=== PATIENT | male | born 1975 | race Caucasian/White ===

== ENCOUNTER 2017-07-02 08:17 | Outpatient (CLI) | payer BC ==
--- NOTE | 2017-07-02 09:19 | RAD ---
BIPHASIC BARIUM SWALLOW: HISTORY: A 41-year-old male with gastroesophageal reflux disease. The patient has a history of laparoscopic gastric banding. FINDINGS: The display coordinator film demonstrates a gastric band in place. Swallowing was grossly normal. There is unobstructed flow of contrast through the esophagus into th e stomach banding site. No obstructing mass, stricture, ulcer, or diverticulum is seen. A 12 mm ta blet passes promptly from the esophagus into the stomach via banding site. No GE reflux was demonst rated during the Valsalva maneuver. IMPRESSION: Unremarkable exam. POS: [facility]
== END 2017-07-02 08:18 | disposition home or self-care (01) ==
LOC: RAD 08:17
PROVIDERS: ATTEND Surgery
DX: K21.9 Gastro-esophageal reflux disease without esophagitis (principal)
CPT/HCPCS: 74220

== ENCOUNTER 2019-02-25 20:22 | Emergency (ER) | payer BC ==
[2019-02-25 22:44] LABS: #Basophils 0.1 thou/uL (0.0-0.2); #Eosinphils 0.3 thou/uL (0.0-0.7); #Lymphocytes 1.7 thou/uL (1.20-3.40); #Monocytes 0.7 thou/uL (0.11-0.59); #Neutrophils 5.7 thou/uL (1.40-6.50); %Basophils 0.6 % (0.0-1.0); %Eosinophils 3.2 % (0.0-10.0); %Lymphocytes 20.1 % (21.0-51.0); %Monocytes 8.8 % (0.0-10.0); %Neutrophils 67.3 % (42.0-75.0); Hemoglobin 15.2 g/dL (14.0-18.0); Mean Corpuscular HGB CONC 34.7 g/dL (32.0-36.0); Mean Corpuscular Hemoglobin 30.7 pg (27.0-31.0); Mean Corpuscular Volume 88.6 fL (78.0-98.0); Mean Platelet Volume 7.7 fL (7.4-10.4); Platelet Count 207 thou/uL (130-400); RBC Distribution Width 13.1 % (11.5-14.5); Red Blood Cell (RBC) Count 4.94 mill/uL (4.70-6.10); White Blood Cell (WBC) Count 8.4 thou/uL (4.8-10.8)
--- NOTE | 2019-02-25 22:53 | RAD ---
AP view chest. HISTORY: Dizziness AP view chest obtained. The lungs are well aerated. No evidence of active intrathoracic disease seen. No evidence of effusions, pneumonia or pneumothorax seen. IMPRESSION: Unremarkable AP view chest.
[2019-02-25 22:55] LABS: ALT (SGPT) 36 U/L (8-55); AST (SGOT) 22 U/L (5-34); Albumin 4.2 g/dL (3.5-5.0); Alkaline Phosphatase 73 U/L (40-150); Anion Gap 11 mmol/L (10-20); BUN (Urea Nitrogen) 10 mg/dL (8.9-20.6); Bilirubin, Total 0.8 mg/dL (0.2-1.2); Calc. Creatinine Clearance 0 mL/min (70-130); Calcium 9.5 mg/dL (7.8-10.44); Carbon Dioxide 26 mmol/L (22-29); Chloride 106 mmol/L (98-107); Estimated GFR-MDRD Greater than 90; Globulin 2.7 g/dL (2.4-3.5); Glucose 93 mg/dL (70-105); Potassium 3.9 mmol/L (3.5-5.1); Protein, Total 6.9 g/dL (6.0-8.3); Sodium 139 mmol/L (136-145)
[2019-02-25] MEDS ORDERED: Aspirin 325 MG TAB ONE (23:09)
== END 2019-02-25 23:15 | disposition home or self-care (01) ==
LOC: ERS 20:22
DX: I10 Essential (primary) hypertension (principal); F32.9 Major depressive disorder, single episode, unspecified; Z79.899 Other long term (current) drug therapy
CPT/HCPCS: 36415; 71045; 80053; 84484; 85025; 93005

== ENCOUNTER 2019-07-08 09:29 | Outpatient (CLI) | payer BC ==
[2019-07-08 11:27] LABS: Prothrombin Time 13.5 SEC (12.0-14.7)
[2019-07-08 11:33] LABS: Mean Corpuscular HGB CONC 33.4 g/dL (32.0-36.0); Mean Corpuscular Hemoglobin 30.6 pg (27.0-31.0); Mean Corpuscular Volume 91.7 fL (78.0-98.0); Mean Platelet Volume 7.6 fL (7.4-10.4); Platelet Count 288 thou/uL (130-400); RBC Distribution Width 12.1 % (11.5-14.5); Red Blood Cell (RBC) Count 4.89 mill/uL (4.70-6.10)
[2019-07-08 11:43] LABS: Anion Gap 12 mmol/L (10-20); BUN (Urea Nitrogen) 12 mg/dL (8.9-20.6); Calc. Creatinine Clearance 0 mL/min (70-130); Calcium 9.2 mg/dL (7.8-10.44); Carbon Dioxide 26 mmol/L (22-29); Chloride 104 mmol/L (98-107); Estimated GFR-MDRD 82; Glucose 90 mg/dL (70-105); Potassium 3.8 mmol/L (3.5-5.1); Sodium 138 mmol/L (136-145)
--- NOTE | 2019-07-09 19:55 | EKG ---
Test Reason : Blood Pressure : / mmHG Vent. Rate : 061 BPM Atrial Rate : 061 BPM P-R Int : 160 ms QRS Dur : 084 ms QT Int : 402 ms P-R-T Axes : 046 060 025 degrees QTc Int : 404 ms Normal sinus rhythm Cannot rule out Anterior infarct , age undetermined Abnormal ECG When compared with ECG of 25-FEB-2019 22:19, No significant change was found Confirmed by MARIA TERESA SERVIN, DR. S. ([id number]) on 07/09/2019 7:55:26 PM Referred By: CIARRA Confirmed By:DR. Panda MOREL MD
== END 2019-07-08 09:30 | disposition home or self-care (01) ==
LOC: LABBT 09:29
PROVIDERS: ATTEND Urology
DX: Z01.818 Encounter for other preprocedural examination (principal); N20.0 Calculus of kidney
CPT/HCPCS: 80048; 81001; 85027; 85610; 85730; 87086; 93005; 93010

== ENCOUNTER 2019-07-09 07:35 | Day surgery (SDC) | payer BC ==
[2019-07-08 09:47] VITALS: BMI 47.3
[2019-07-09] MEDS ORDERED: Iothalamate Meglumine 60% 50 ML VIAL FS ONE (08:57)
[2019-07-09] MEDS ORDERED: Fentanyl 100 MCG/2 ML VIAL ONE (08:59)
[2019-07-09] MEDS ORDERED: Levofloxacin 500 mg/D5W 100 ml Premix Bag ONE (09:13)
[2019-07-09] MEDS ORDERED: Midazolam HCl 2 mg/2 ml Vial ONE (09:13)
--- NOTE | 2019-07-09 10:39 | RAD ---
Retrograde pyelogram: HISTORY: Left ureteral calculus. Stent placement FINDINGS: Several portable fluoroscopic spot images demonstrate injection of the left ureter with an irregular filling defect in the distal left ureter and some proximal dilatation. Left ureteral stent placement. IMPRESSION: Distal left ureteral calculus. Left ureteral stent placement. Consider follow-up.
[2019-07-09] MEDS ORDERED: Oxybutynin 5 MG TAB ONE (10:57)
[2019-07-09] MEDS ORDERED: Phenazopyridine HCl 97.5 MG TABLET ONE (10:57)
--- NOTE | 2019-07-09 11:19 | RAD ---
ABDOMEN SUPINE: INDICATIONS: Preoperative evaluation. FINDINGS: There is a gastric band device in place overlying the upper abdomen. Bowel gas pattern is unremarkabl e. No definite urinary tract calcification identified. POS: OFF
--- NOTE | 2019-07-09 13:17 | OP ---
DATE OF PROCEDURE: 07/09/2019 PREOPERATIVE DIAGNOSES: 1. History of left 6-mm distal ureteral calculi. 2. History of left nonobstructing 3-mm calculi. 3. History of recurrent kidney stone. POSTOPERATIVE DIAGNOSES: 1. History of left 6-mm distal ureteral calculi. 2. History of left nonobstructing 3-mm calculi. 3. History of recurrent kidney stone. PROCEDURES PERFORMED: Cystoscopy, left dilation of intramural ureter, rigid ureteroscopy, laser lithotripsy of large left distal ureteral calculi, basket extraction of stone fragments, retrograde pyelogram, 6 x 28 double-J ureteral stent with distal tail in situ. ANESTHESIA: General. COMPLICATIONS: None. SPECIMENS: Stone fragment for chemical analysis. DESCRIPTION OF PROCEDURE: The patient was taken to the operating room, placed in a dorsal lithotomy position with the genital area prepped and draped in the usual surgical sterile fashion. Broad-spectrum antibiotics were provided. A 22- Bengali cystoscope was utilized for cystoscopy, which demonstrated normal anterior and posterior urethra. There was a suggestion of possible early bulbar stricture, however, this was nonobstructing and not of concern. Bilobar hyperplasia of the prostate minimally obstructing. The bladder was entered, which demonstrated the UOs in normal orthotopic position with no bladder tumor, stones, or lesion seen. The retrograde pyelogram was performed within a 1:1 diluted contrast with an open- ended catheter, which demonstrated a filling defect in the distal ureter just proximal to the intramural ureter. There was a high-grade obstruction as there was difficult to opacify the contrast proximal to the stone. I was able to opacify the upper collecting system and a 0.35 Sensor wire was passed to the level of the left upper pole. At this time, we dilated the intramural ureter and the ureteral orifice using a 4 cm 12-Bengali [employer] apparatus. Pressure was held at maximal pressure and subsequently deflated and this was performed under fluoroscopic guidance. After the ureter was dilated, we then passed a rigid ureteroscope. As he was dilated , I was able to easily visualize the stone, which appeared to be quite large, bigger than as appreciated on CT scan. Although, CT read 6 mm, the stone appears to be almost 8 to 10 mm in size. It was somewhat adherent to the mucosa. Using 273 straight tip laser fiber at 0.8 to 1.0 joules, we laser lithotripsied the stone into multiple fragments. We basket extracted those that were amendable to be basket extracted. At the end of the procedure, endoscopic clearance was noted. I did perform a retrograde pyelogram after the procedure demonstrating no evidence of further filling defect or extravasation of contrast. Endoscopic clearance of the stone was noted. A 6 x 28 double-J ureteral stent was passed over the working wire with distal tail in situ. The wire was then subsequently removed. He tolerated the procedure well and transported to the recovery room in stable condition. He was discharged home with tramadol 50 mg #40 one to two p.o. q.6 to 8 hours p.r.n., Flomax 0.4 mg #20, Colace p.r.n., ciprofloxacin 500 mg one p.o. b.i.d. for 10 days, Azo [id number]-czayzcv p.r.n. Job ID: [id number] MTDD
== END 2019-07-09 12:35 | disposition home or self-care (01) ==
LOC: SDC 07:35
PROVIDERS: ATTEND Urology
PROC: 0TF78ZZ Fragmentation in Left Ureter, Via Natural or Artificial Opening Endoscopic (ICD-10-PCS; principal; 2019-07-09)
PROC: 0T778DZ Dilation of Left Ureter with Intraluminal Device, Via Natural or Artificial Opening Endoscopic (ICD-10-PCS; principal; 2019-07-09)
DX: N20.1 Calculus of ureter (principal); R35.0 Frequency of micturition; I10 Essential (primary) hypertension; F41.9 Anxiety disorder, unspecified; F32.9 Major depressive disorder, single episode, unspecified; K21.9 Gastro-esophageal reflux disease without esophagitis; E66.01 Morbid (severe) obesity due to excess calories; Z68.42 Body mass index [BMI] 45.0-49.9, adult; Z79.899 Other long term (current) drug therapy; Z91.018 Allergy to other foods
CPT/HCPCS: 74018; 74420; 82365; 88300; C1758; C1769; J1956; J2250; J3010

== ENCOUNTER 2019-10-20 12:11 | Outpatient (CLI) | payer BC ==
--- NOTE | 2019-10-20 15:21 | ULT ---
ULTRASOUND RETROPERITONEUM COMPLETE: (RENAL) DATE: 10/20/2019 HISTORY: 43-year-old male with calculus of kidney. FINDINGS: The right kidney measures 12.5 x 5.5 x 6 cm. The left kidney measures 13.5 x 6 x 6.5 cm. Both kidne ys have normal cortical thickness and normal cortical echogenicity. There is no hydronephrosis. Cur saman images of the urinary bladder demonstrate no gross abnormality. Bladder volume during time of sc an: 45 mL. IMPRESSION: Normal. jn [] POS: OFF
--- NOTE | 2019-10-20 15:34 | RAD ---
RADIOGRAPH ABDOMEN 1 VIEW: Date: 10/20/2019 HISTORY: 43-year-old male with renal stone. Calculus of kidney follow-up. COMPARISON: KUB of 07/09/2019. Retrograde pyelogram of 07/09/2019. FINDINGS: The left ureteral stent visualized on the last image of the retrograde pyelogram has been removed. Th e previously demonstrated approximately 12 x 7 mm distal left ureteral calculus in the pelvis, is no longer present. Bowel gas pattern is normal. Again noted is the lap band at the esophagogastric junct ion. IMPRESSION: 1. No urolithiasis identified. 2. Interval expulsion of the greater than 1 cm distal left ureteral calculus. POS: OFF
== END 2019-10-20 12:12 | disposition home or self-care (01) ==
LOC: BICULT 12:11
PROVIDERS: ATTEND Urology
DX: N20.2 Calculus of kidney with calculus of ureter (principal)
CPT/HCPCS: 36415; 74018; 76770; 80048

== ENCOUNTER 2020-06-25 10:03 | Outpatient (CLI) | payer BC ==
--- NOTE | 2020-06-25 14:35 | NM ---
RADIONUCLIDE PARATHYROID SCAN WITH PLANAR AND SPECT-CT IMAGES: HISTORY: Hyperparathyroidism, unspecified RADIOPHARMACEUTICAL:27.2mCi technetium 99m-sestamibi injected intravenously FINDINGS: There is physiologic uptake in the salivary glands and thyroid gland. No abnormal areas of tracer localization are seen in the neck or chest. IMPRESSION: No scintigraphic evidence of parathyroid adenoma Further evaluation with CT scan of the neck using the parathyroid protocol is recommended.
== END 2020-06-25 10:04 | disposition home or self-care (01) ==
LOC: NM 10:03
PROVIDERS: ATTEND Specialist
DX: E21.3 Hyperparathyroidism, unspecified (principal)
CPT/HCPCS: 78072; A9500

== ENCOUNTER 2020-08-31 15:26 | Outpatient (CLI) | payer BC ==
--- NOTE | 2020-08-31 16:09 | RAD ---
ONE VIEW ABDOMEN: 08/31/20 HISTORY: Renal stone. COMPARISON: 10/20/19. FINDINGS: Laparoscopic gastric band is again noted in place and unchanged in position. Bowel gas pattern is non specific. Renal shadows are mostly obscured on this exam due to overlying bowel. No obvious suspiciou s calcifications are seen overlying the region of the expected location of the renal collecting syste ms overlying the course of either ureter. No interval change from prior exam. IMPRESSION: 1. No suspicious calcifications are seen to suggest renal or ureteral calculi based on this exam. 2. Nonspecific bowel gas pattern. POS: [facility]
--- NOTE | 2020-08-31 16:28 | ULT ---
EXAM: US Renal Bilateral STANDARD PROVIDED CLINICAL HISTORY: Renal calculus COMPARISON: 10/20/2019 FINDINGS: Right kidney measures approximately 11.9 x 5.8 x 6.3 cm and demonstrates no evidence for hydronephros is, sonographically apparent calculus or mass. Left kidney measures approximately 12.7 x 5.3 x 6.2 cm and demonstrates no evidence for hydronephrosi s, sonographically apparent calculus or mass. Urinary bladder appears sonographically unremarkable. IMPRESSION: No evidence for hydronephrosis.
== END 2020-08-31 15:27 | disposition home or self-care (01) ==
LOC: BICULT 15:26
PROVIDERS: ATTEND Urology
DX: N20.0 Calculus of kidney (principal)
CPT/HCPCS: 36415; 74018; 76770; 82306; 82310; 82330; 83970

== ENCOUNTER 2022-02-13 11:34 | Outpatient (CLI) | payer BC ==
[2022-02-13 12:46] LABS: Hemoglobin 14.5 g/dL (13.5-17.5); Mean Corpuscular HGB CONC 33.2 g/dL (32.0-36.0); Mean Corpuscular Hemoglobin 31.2 pg (27.0-33.0); Mean Platelet Volume 9.7 fl (7.4-10.4); Platelet Count 216 10x3/uL (150-450); Red Blood Cell (RBC) Count 4.65 10x6/uL (4.32-5.72); White Blood Cell (WBC) Count 5.8 10x3/uL (3.5-10.5)
[2022-02-13 13:02] LABS: PTT 26.2 sec (22.0-33.0); Prothrombin Time 10.7 sec (9.5-12.1)
[2022-02-13 13:14] LABS: Anion Gap 14 mmol/L (10-20); BUN (Urea Nitrogen) 16 mg/dL (8.9-20.6); Calc. Creatinine Clearance 0 mL/min (70-130); Calcium 9.3 mg/dL (7.8-10.44); Carbon Dioxide 26 mmol/L (22-29); Chloride 107 mmol/L (98-107); Glucose 99 mg/dL (70-105); Potassium 4.1 mmol/L (3.5-5.1); Sodium 143 mmol/L (136-145)
[2022-02-13 15:21] LABS: Bacteria/HPF None Seen HPF (None Seen); Bilirubin Negative (Negative); Blood, Urine 2+ (Negative); Clarity Clear (Clear); Glucose, Urine (Dipstick) Normal (Negative); Ketone, Urine Negative (Negative); Leukocyte 25 Leu/uL (Negative); Nitrite Negative (Negative); Protein, Urine (Dipstick) Negative (Neg-Trace); Specific Gravity, Urine 1.022 (1.002-1.036); Squamous Epithelial None Seen HPF (0-3); Urobilinogen Normal mg/dL (Less than 2)
[2022-02-13 20:00] LABS: SARS-CoV-2 PCR by NAA Not Detected (NotDetected)
== END 2022-02-13 11:35 | disposition home or self-care (01) ==
LOC: LABBT 11:34
PROVIDERS: ATTEND Urology
DX: Z01.818 Encounter for other preprocedural examination (principal); N20.1 Calculus of ureter; Z20.822 Contact with and (suspected) exposure to COVID-19
CPT/HCPCS: 80048; 81001; 85027; 85610; 85730; 87086; 93005; 93010; U0003; U0005

== ENCOUNTER 2022-02-15 08:35 | Day surgery (SDC) | payer BC ==
[2022-02-14 11:46] VITALS: BMI 51.2
[2022-02-15] MEDS ORDERED: Iopamidol 45 ML ONE (10:02)
[2022-02-15] MEDS ORDERED: Levofloxacin 500 mg/D5W 100 ml Premix Bag ONE (11:32)
[2022-02-15] MEDS ORDERED: Fentanyl 100 MCG/2 ML VIAL ONE (11:40)
[2022-02-15] MEDS ORDERED: Rocuronium Bromide 10 MG/ML (10ML VIAL) ONE (11:43)
[2022-02-15] MEDS ORDERED: ePHEDrine 50 MG/ML VIAL ONE (11:43)
[2022-02-15] MEDS ORDERED: Glycopyrrolate 0.2 MG/ML 5 ML SYRINGE ONE (11:43)
[2022-02-15] MEDS ORDERED: Dexamethasone 20 MG/5 ML VIAL ONE (11:43)
[2022-02-15] MEDS ORDERED: PROPOFOL 200 MG/20 ML VIAL ONE (11:43)
[2022-02-15] MEDS ORDERED: Ondansetron PF 4 MG/2 ML Vial ONE (11:43)
[2022-02-15] MEDS ORDERED: Lidocaine 1% PF 5 ML VIAL ONE (11:43)
[2022-02-15] MEDS ORDERED: SUGAMMADEX SODIUM 200 MG/2 ML VIAL ONE ×2 (12:19→12:21)
[2022-02-15] MEDS ORDERED: Oxybutynin 5 MG TAB ONE (12:49)
[2022-02-15] MEDS ORDERED: Phenazopyridine HCl 100 MG TAB ONE (12:49)
== END 2022-02-15 14:12 | disposition home or self-care (01) ==
LOC: SDC 08:35
PROVIDERS: ATTEND Urology
PROC: 0TC68ZZ Extirpation of Matter from Right Ureter, Via Natural or Artificial Opening Endoscopic (ICD-10-PCS; principal; 2022-02-15)
PROC: 0T768DZ Dilation of Right Ureter with Intraluminal Device, Via Natural or Artificial Opening Endoscopic (ICD-10-PCS; principal; 2022-02-15)
DX: N13.2 Hydronephrosis with renal and ureteral calculous obstruction (principal); N40.0 Benign prostatic hyperplasia without lower urinary tract symptoms; I10 Essential (primary) hypertension; K21.9 Gastro-esophageal reflux disease without esophagitis; R79.89 Other specified abnormal findings of blood chemistry; E66.01 Morbid (severe) obesity due to excess calories; Z68.43 Body mass index [BMI] 50.0-59.9, adult; Z79.2 Long term (current) use of antibiotics; Z79.899 Other long term (current) drug therapy; Z91.018 Allergy to other foods
CPT/HCPCS: 74018; 74420; 82365; 88300; C2617; J1100; J1956; J2405; J2704; J3010; J3490; Q9967

== ENCOUNTER 2023-08-23 12:19 | Outpatient (CLI) | payer BC | END 2023-08-23 12:20 | disposition home or self-care (01) | LOC: BICULT 12:19 | PROVIDERS: ATTEND Urology | DX: N20.0 Calculus of kidney (principal) | CPT/HCPCS: 74018; 76770 ==

== ENCOUNTER 2024-07-10 10:22 | Outpatient (CLI) | payer BC | END 2024-07-10 10:23 | disposition home or self-care (01) | LOC: DTY/OP 10:22 | DX: E66.01 Morbid (severe) obesity due to excess calories (principal); Z68.43 Body mass index [BMI] 50.0-59.9, adult | CPT/HCPCS: 97802 ==